=== PATIENT | male | born 1980 | race Two or more races ===

== ENCOUNTER 2021-09-14 16:58 | Emergency (ER) | payer MEDICAID ==
[~2021-09-14] VITALS: Ht 165.1 cm; Wt 74.1 kg
[2021-09-14 22:45] VITALS: BP 156/95
== END 2021-09-14 22:52 | disposition home or self-care (01) ==
LOC: EMS 17:03
DX: F15.10 Other stimulant abuse, uncomplicated (principal); F17.210 Nicotine dependence, cigarettes, uncomplicated
CPT/HCPCS: 99283

== ENCOUNTER 2021-09-14 23:50 | Outpatient (CLI) | payer MEDICAID ==
[2021-09-15 00:30] VITALS: BP 146/86
[2021-09-15 01:00] VITALS: BP 146/86
[2021-09-15] MEDS ORDERED: OLANZapine 5 MG TABLET PO PRN (01:30)
[2021-09-15 02:46] LABS: GLUCOMETER DEV NAME(LOC) POC.BV
[2021-09-15 07:30] VITALS: BP 131/92
== END 2021-09-15 07:50 | disposition home or self-care (01) ==
LOC: CSU 23:50
PROVIDERS: ATTEND Psychiatry & Neurology Psychiatry
DX: F29 Unspecified psychosis not due to a substance or known physiological condition (principal); F17.210 Nicotine dependence, cigarettes, uncomplicated; Z20.822 Contact with and (suspected) exposure to COVID-19
CPT/HCPCS: 90792